=== PATIENT | male | born 1975 | race Caucasian/White ===

== ENCOUNTER 2017-12-11 08:31 | Emergency (ER) | payer OTHER ==
[2017-12-11 08:52] VITALS: BP 129/79; PULSE 72; TEMP 98.6; BMI 25.4
--- NOTE | 2017-12-11 09:57 | PDOC ---
History of Present Illness - General History Source: Patient Exam Limitations: No Limitations - History of Present Illness Initial Comments: 12/11/17 10:33 The patient is a 42-year-old male, with a significant medical history of diverticulitis and esophagitis, who presents to the ED with a few days of mid- sternal chest pain. He describes the pain as burning in sensation, with no radiation, worsened with eating. The patient states that his pain progressively worsened last night and he was unable to sleep. He was recently diagnosed with esophagitis after having an endoscopy done in July. He believes this is a flare up of his esophagitis. The patient has not had anything to eat in the past 12 hours. He denies any recent travel. Allergies: None Surgical History: Colostomy, endoscopy (in July) Social History: The patient denies any tobacco use, drug use, or alcohol use. <Violetta John - Last Filed: 12/11/17 10:32> <Ari Lopes - Last Filed: 12/11/17 18:39> - General Chief Complaint: Chest Pain Stated Complaint: CHEST PAIN Time Seen by Provider: 12/11/17 09:57 Past History <Violetta John - Last Filed: 12/11/17 10:32> - Past Medical History COPD: No GI Disorders: Yes (DIVERTIVULITIS,ESOPHAGITIS,) - Surgical History GI Surgery: Yes (OSTOMY AND RECENT REVERSAL) - Suicide/Smoking/Psychosocial Hx Smoking History: Never smoked <Ari Lopes - Last Filed: 12/11/17 18:39> - Past Medical History Allergies/Adverse Reactions: Allergies Allergy/AdvReac Type Severity Reaction Status Date / Time No Known Allergies Allergy Verified 12/11/17 08:47 Home Medications: Ambulatory Orders Omeprazole 40 mg PO DAILY 12/11/17 Review of Systems - Review of Systems Able to Perform ROS?: Yes Comments:: 12/11/17 10:36 A complete review of 10 out of 10 review of systems is taken and is negative apart from what is previously mentioned below and in the HPI. <Violetta John - Last Filed: 12/11/17 10:32> *Physical Exam - Vital Signs Last Vital Signs Temp Pulse Resp BP Pulse Ox 98.6 F 72 16 129/79 98 12/11/17 08:47 12/11/17 08:47 12/11/17 08:47 12/11/17 08:47 12/11/17 08:47 - Physical Exam Comments: 12/11/17 10:36 Vitals: Triage Vital signs reviewed General Appearance: no acute distress, well nourished well developed, Head: Atraumatic, normocephalic Throat: Posterior oropharynx without erythema, mucous membranes moist, Neck: Supple;No Nuchal rigidity Chest Wall: Nontender Cardiac: Regular rate and rhythm, no murmurs, no rubs, no gallops, Lungs: Clear to auscultation bilateral, good air movement bilaterally, Abdomen: Soft, nondistended, normal bowel sounds, nontender to palpation Rectal: Exam deferred Extremities: Full range of motion to all extremities, no cyanosis, clubbing, or edema Skin: Warm and dry, no rashes or lesions, no petechiae Neuro: AOX3; Cranial Nerves 2-12 grossly c intact, Strength intact to all extremities, Sensation intact to all extremities, gait normal Psych: normal mood, normal affect <Violetta John - Last Filed: 12/11/17 10:32> - Vital Signs Last Vital Signs Temp Pulse Resp BP Pulse Ox 98.6 F 72 16 129/79 98 12/11/17 08:47 12/11/17 08:47 12/11/17 08:47 12/11/17 08:47 12/11/17 08:47 <Ari Lopes - Last Filed: 12/11/17 18:39> Heart Score/ECG Review - ECG Intrepretation Comment:: 12/11/17 10:38 EKG performed at 8:39 demonstrates rate of 59 bpm, rhythm of sinus bradycardia, axis is normal. No T wave inversions, no ST elevations <Violetta John - Last Filed: 12/11/17 10:32> ED Treatment Course - LABORATORY CBC & Chemistry Diagram: 12/11/17 10:40 <Ari Lopes - Last Filed: 12/11/17 18:39> Medical Decision Making - Medical Decision Making 12/11/17 11:23 Well-appearing no apparent distress history and examination most consistent with worsening esophagitis or dyspepsia. Heart score 1 given several days of persistent symptoms we'll check one troponin EKG nonischemic we'll treat with GI cocktail and reassess Reevaluation: Patient feels better after GI cocktail troponin negative nonischemic EKG Patient advised to follow-up with his has assistant corporate controller next week she will return to ED for any severe worsening symptoms or for any concerns Findings, the need for follow-up and strict return instructions discussed with patient. <Ari Lopes - Last Filed: 12/11/17 18:39> *DC/Admit/Observation/Transfer - Attestations Scribe Attestion: 12/11/17 10:40 Documentation prepared by Violetta John, acting as medical physiologist for Ari Lopes MD. <Violetta John - Last Filed: 12/11/17 10:32> - Discharge Dispostion Admit: No <Ari Lopes - Last Filed: 12/11/17 18:39> Diagnosis at time of Disposition: Dyspepsia - Discharge Dispostion Disposition: HOME Condition at time of disposition: Stable - Patient Instructions Printed Discharge Instructions: DI for Dyspepsia Additional Instructions: Take [id number] Maalox as directed on package in addition to your prescribed omeprazole. Today fluids only. If tomorrow improvement in pain beginning bland diet Follow-up with her assistant corporate controller next week. Return to the emergency department for any severe worsening symptoms or for any concerns.
[2017-12-11] MEDS ORDERED: RANITIDINE HCL 150 MG TABLET (FP) PO ONE (10:14)
[2017-12-11] MEDS ORDERED: LIDOCAINE VISCOUS 2% ORAL/TOP 20 ML UNIT-DOSE CUP MM ONE (10:14)
[2017-12-11] MEDS ORDERED: MAG HYDROX/AL HYDROX/SIMETH 30 ML UNIT-DOSE CUP PO ONE (10:14)
[2017-12-11 11:05] LABS: ALBUMIN 3.9 g/dl (3.4-5.0); ANION GAP 7 (8-16); BILIRUBIN,TOTAL 0.8 mg/dL (0.2-1.0); BLOOD UREA NITROGEN 11 mg/dL (7-18); CALCIUM 8.7 mg/dL (8.5-10.1); CHLORIDE 103 mmol/L (98-107); CO2 27 mmol/L (21-32); CREATININE 0.9 mg/dL (0.7-1.3); GLUCOSE,RANDOM 96 mg/dL (74-106); POTASSIUM 3.8 mmol/L (3.5-5.1); SGOT/AST 17 U/L (15-37); SGPT/ALT 33 U/L (12-78); SODIUM 137 mmol/L (136-145); TOT PROT 7.7 g/dl (6.4-8.2)
[2017-12-11 11:07] LABS: ALK PHOS 110 U/L (45-117)
--- NOTE | 2017-12-12 17:17 | EKG ---
Test Reason : Blood Pressure : / mmHG Vent. Rate : 059 BPM Atrial Rate : 059 BPM P-R Int : 188 ms QRS Dur : 096 ms QT Int : 426 ms P-R-T Axes : 067 042 053 degrees QTc Int : 421 ms SINUS BRADYCARDIA OTHERWISE NORMAL ECG NO PREVIOUS ECGS AVAILABLE Confirmed by MARÍA MENDOZA MD ([id number]) on 12/12/2017 5:17:16 PM Referred By: Confirmed By:MARÍA MENDOZA MD
== END 2017-12-11 11:28 | disposition home or self-care (01) ==
LOC: JER 08:31
DX: R10.13 Epigastric pain (principal); K20.9 Esophagitis, unspecified
CPT/HCPCS: 36415; 71045-TC; 80048; 80053; 84484; 93005; 93010; 99283-25